=== PATIENT | female | born 1990 | race African-American/Black ===

== ENCOUNTER 2021-03-09 17:07 | Observation (INO) | payer MEDICAID ==
[~2021-03-09] VITALS: Ht 157.5 cm; Wt 106.6 kg
[2021-03-09 18:03] LABS: BASOPHILS % 0.3 % (0.0-2.0); CLARITY URINE CLOUDY (CLEAR); COLOR URINE YELLOW (YELLOW); EOSINOPHILS % 0.1 % (0.0-5.0); HEMATOCRIT. 28.6 % (36.0-48.0); HEMOGLOBIN. 9.6 g/dL (12.0-16.0); KETONES URINE 3+ (NEGATIVE); LEUKOCYTE ESTERASE URINE TRACE (NEGATIVE); LYMPHOCYTES % 12.5 % (20.0-50.0); MEAN CORPUSCULAR HEMOGLOBIN 23.3 pg (28.0-32.0); MEAN CORPUSCULAR VOLUME 69.3 fL (81.0-99.0); MONOCYTES % 7.8 % (2.0-8.0); NEUTROPHILS % 79.3 % (40.0-76.0); NITRITE URINE NEGATIVE (NEGATIVE); OCCULT BLOOD URINE NEGATIVE (NEGATIVE); PH URINE 5.5 (4.5-8.0); PLATELET 281 x1000/uL (130-400); PROTEIN URINE 1+ (NEGATIVE); RED BLOOD CELL COUNT 4.13 mill/uL (4.2-5.4); RED CELL DISTRIBUTION WIDTH 14.2 % (11.6-14.6); SPECIFIC GRAVITY URINE 1.033 (1.005-1.030)
[2021-03-09 18:17] LABS: PLATELET ESTIMATE NORMAL
[2021-03-09] MEDS ORDERED: DEXT 5%/LACTATED RINGERS 1,000 ML IV SCH (20:00)
[2021-03-09] MEDS ORDERED: CEFAZOLIN 2,000 MG in DEXT 5% WATER 100 ML IV SCH (20:30)
[2021-03-09 21:06] LABS: CHLORIDE 104 mEq/L (98-107)
[2021-03-09] MEDS ORDERED: ACETAMINOPHEN 325MG TABLET PO NR (22:00)
[2021-03-09] MEDS ORDERED: PREN1TAB78 PO (23:15)
== END 2021-03-10 00:10 | disposition home or self-care (01) ==
LOC: 8 EST LDRP 17:07
PROVIDERS: ADMIT Obstetrics & Gynecology; ATTEND Obstetrics & Gynecology
DX: O26.893 Other specified pregnancy related conditions, third trimester (principal); R10.9 Unspecified abdominal pain; R07.9 Chest pain, unspecified; O99.891 Other specified diseases and conditions complicating pregnancy; M54.5 Low back pain; Z3A.31 31 weeks gestation of pregnancy
CPT/HCPCS: 36415; 59025; 76805; 76818; 80053; 81003; 85025; 87086; 96365; 96366; G0378; J0690; J7060; 99281